=== PATIENT | female | born 1960 | race Caucasian/White ===

== ENCOUNTER 2018-02-01 08:00 | Outpatient (RCR) | payer BC, SELFPAY ==
--- NOTE | 2017-12-21 08:45 | HP.PTEVAL_ITS ---
Patient's Visit Information ERNA CHATMAN is a 57 year old F referred to Physical Therapy by JOSEE DENNISON with a diagnosis of L upper back pain. Date of Evaluation: 12/21/17 Physical Therapist: Tab De La Torre DPT, OC - Visit Plan Frequency: 2-3x /Week Duration: 4-6 Weeks Plan: 2-3x/week for 4-6 weeks. 1. monitor home c/s ret and ext program(ROM, pain and UE elevation). 2. sTM to L c/s, UT, scalenes and stretch same, . 3. Postural focus. - Subjective Subjective: L shoulder complaints and is painful, weak and keeping up at night. Been there a couple months and insidious in onset with thightness for no reason. Pain is neck and top of shoulder. Sore at rest. No numbness or tingling. No pain in arm. Wakes up at night and uncomfy getting to sleep. Lying on right is worse on left shoulder. Works as a supervisor [employer], pushing AV cart hurts. Sitting is worse than up and moving. Hobbies include cooking and hiking. stirring and reaching is painful. Driving can hurt. Is right handed. L hand on wheel is problematic. Getting dressed putting arms through sleeve and head through sweater and hand behind all hurt. - Pain L neck and top shoulder Pain Intensity (Out of 10): 1 Pain Intensity Range: 0, 4 Comment: OK with alleve, - Objective Posture is forward head and scap. Tender to the touch in L UT and scalenes. C/ S aROM 45 ext with pain L, 50 L rotation and 52 R rotation both painful on L UT. L SB 20 degrees and R SB28 degrees. reflexes 2/3 bi and tri. Sensation UE WNL to gross light touch. Strength in UE is 4-/5, has discomfort posterior shoulder with ext rotationa nd flex abd resisted. UE AROM is full but pain end range of IR and flexion/abduction. Repeated motion testing: protrusion, better pain down to 1/10 from 2, better ext 55 degrees and easier to lift arm. retraction: better. extension: producexs pain but better when done. - Goals Goal 1:: Full c/s and shoulder AROM without pain Goal Time Frame: 4-6 Weeks Goal 2:: Overall pain intermittent and 1/10 at worst, 75% improved overall. Goal Time Frame: 4-6 Weeks Goal 3:: Sleep without waking due to pain Goal Time Frame: 4-6 Weeks Goal 4:: Dress and cook without noticing symptoms Goal Time Frame: 4-6 Weeks - Rehabilitation Potential Physical Therapy Diagnosis: L neck pain, muscular vs discal. Rehabilitation Potential: Fair - Anticipated Interventions Patient/Client Instruction: Educate patient on: Condition, Plan of Care For the Purpose of:: To decrease pain, To increase ROM, To increase tolerance to activity/condition/position, To improve ability of physical actions for home/ community/work/leisure Therapeutic Exercise to Include: Strength training, Postural training, Flexibilty training, Active ROM For the Purpose of:: To decrease pain, To increase ROM, To improve muscle performance and motor function, To increase tolerance to activity/condition/ position, To improve ability of physical actions for home/community/work/leisure Manual Therapy Techniques to Include: Soft tissue mobilization For the Purpose of:: To increase ROM, To improve nutrient delivery to tissue, To increase oxygenation perfusion Thermo therapy (hot pack): Yes For the Purpose of:: To decrease pain Thank you for the opportunity to evaluate your patient. For Medicare and Medicare HMO plans, please review the plan of care and approve it. It will need to be FAXED BACK to us at [phone] for Medicare purposes. Please let me know if there are questions or concerns regarding this plan of care. Physician Signature: Date:
--- NOTE | 2018-02-01 08:18 | HP.PTDCSUM ---
HP - PT D/C Summary It has been my pleasure to treat ERNA CHATMAN under orders from JOSEE HOLLEY, for the diagnosis of L upper back pain for a total of 8 visit(s). Discharge Date: 02/01/18 Please see the following information for a summary of their discharge status. - Subjective Subjective: Needs blue band . Painful and tightness has returned as she has been to busy to continue ex. Pain to 3/10 in L shoulder neck. Did ROM but not strengthen. Thinks she is worsening due to lack of strength. Sleep is interrupted again. Avoids lifting in the kitchen b/c she is scared to inure it. - Pain L neck and top shoulder Pain Intensity (Out of 10): 3 - Overall Improvement % Improvement: 85 - Objective Objective/Function: Full aROM UE adn strength is 4+ without pain. C/S AROM 70 ext with mild discomfort L C/S, 70 L rotation with mild pain and 75 nR rotation. L SB limited as compared to r and painful. + c/s compression. PT DID WELL WITH PT BUT NONCOMPLINCE WITH HEP OVER THE LAST FEW WEEKS(SHE HAS BEEN VERY BUSY) HAS CAUSED HER TO REGRESS. - Goals Goal 1:: Full c/s and shoulder AROM without pain Goal Progress: UP AND DOWN Goal 2:: Overall pain intermittent and 1/10 at worst, 75% improved overall. Goal Progress: UP AND DOWN Goal 3:: Sleep without waking due to pain Goal Progress: INTERMITTENT Goal 4:: Dress and cook without noticing symptoms Goal Progress: REGRESSED - Plan Plan: SHE WISHES TO F/U WITH DOCTOR AND BE MORE COMPLIANT WITH HEP VS FURTHER PT. D/C - D/C Information Discharge Comments: PT TO F/U WITH DOCTOR FOR STOMACH ISSUES AND ADDRESS OTHER OPTIONS ON SHOULDER WITH DOCTOR IF PAIN DEOSN'T IMPROVE WITH HEP COMPLIANCE If there are questions or concerns regarding this patient's physical therapy, please feel free to call me at [phone]. Thank you for the referral of this patient. Sincerely, Tab De La Torre, DPT, OC
== END 2018-02-01 19:00 | disposition home or self-care (01) ==
LOC: PT 08:00
DX: M54.9 Dorsalgia, unspecified (principal)
CPT/HCPCS: 97035; 97110; 97162; 97530

== ENCOUNTER → 2018-08-09 07:20 | Outpatient (CLI) | payer BC, SELFPAY ==
--- NOTE | 2018-08-09 07:24 | BI_ITS ---
MAMMOGRAPHY - BILATERAL SCREENING REASON FOR EXAM: Female, 58 years old. Routine annual screening examination. PERTINENT HISTORY: Grandmother with breast cancer. TECHNIQUE: Digital bilateral breast kaya (3D mammographic acquisition) in the CC and MLO projections. 2-D mediolateral oblique (MLO) and craniocaudad (CC) views of both breasts were obtained. CAD: Full Field Digital Mammography with Computer Added Detection was performed. COMPARISON: Comparison is made with prior study dated January 16, 2014 and September 14, 2012. FINDINGS: Breast Composition: The breasts are heterogeneously dense, which may obscure small masses. There are no dominant masses or suspicious calcifications. No other significant abnormalities are identified. There has been no significant change since the prior study. BI/SCREENING MAMM (CAD), BILAT IMPRESSION: Stable bilateral screening mammogram. Yearly follow-up mammogram recommended. (A) ASSESSMENT CATEGORY: BIRADS Category 1: Negative. A letter regarding these results will be sent to the patient by the facility within 30 days. Approximately 10% of breast cancers are not detected by mammography. A normal mammogram should not delay biopsy of a clinically suspicious abnormality. [id number] Electronically Signed: Edy Hartman MD at 8:24 EDT Tel [phone], Service support ,
[2018-08-09 08:14] LABS: Absolute Lymphocyte Count 0.79 X10^3/ul (0.83-4.51); Absolute Neutrophil Count 6.9 X10^3/uL (2.0-7.7); Basophil# 0.01 X10^3/uL; Basophil% 0.1 % (0-1); Eosinophil# 0.01 X10^3/uL; Eosinophils% 0.1 % (0-5); Hematocrit 40.9 % (37-47); Hemoglobin 13.6 g/dl (12.0-15.0); Lymphocyte # 0.79 X10^3/ul (4.0); Lymphocyte % 9.3 % (19-41); Mean Corp Hgb Conc 33.3 g/gl (32-36); Mean Corpuscular Volume 96.2 fL (81-99); Mean Platelet Vol. 8.7 fl (6.2-12.0); Monocyte# 0.78 X10^3/uL; Monocyte% 9.2 % (0-10); Neutrophil # 6.92 X10^3/uL (2.7-7.7); Neutrophil % 81.2 % (47-70); POSITIVE COUNT NO; POSITIVE DIFFERENTIAL NO; POSITIVE MORPHOLOGY NO; Platelet Count 326 K/mm3 (150-450); RBC Distribution Width CV 12.7 % (11.6-14.6); Red Blood Count 4.25 M/mm3 (4.2-5.4); White Blood Count 8.5 K/mm3 (4.4-11.0)
[2018-08-09 08:33] LABS: Hemoglobin A1c 5.6 % (4.2-6.3)
[2018-08-09 08:56] LABS: Cholesterol 201 mg/dL (200); Ferritin 65 ng/mL (8-252); High Density Lipoprotein 50 mg/dL; Triglycerides 148 mg/dL; Very Low Density Lipoprotein 30 mg/dL (5-40)
[2018-08-09 09:01] LABS: Vitamin D,25 Hydroxy 24.2 ng/mL (29.95-100.01)
[2018-08-09 14:56] LABS: AST(SGOT) 22 U/L (15-37); Alanine Aminotransfer ALT/SGPT 36 U/L (13-56); Albumin, Serum 3.5 g/dL (3.2-5.0); Alkaline Phosphatase 102 U/L (45-117); Anion Gap 5 (5-15); BUN 14 mg/dL (7-18); BUN/Creat Ratio 19.4 RATIO (10-20); Calcium,Total 8.4 mg/dL (8.5-10.1); Chloride 108 mmol/L (98-107); Creatinine, Serum 0.72 mg/dL (0.55-1.02); EST Glomerular Filtration Rate 88 mL/min (>60); Est Glom Filt Rate - Afr Amer 107 mL/min (>60); Globulin 3.4 g/dL (2.2-4.2); Glucose 105 mg/dL (74-106); Protein, Total 6.9 g/dL (6.4-8.2); Sodium Level 139 mmol/L (136-145)
== END ==
LOC: OPBI 07:21 → PAVLAB 07:51
DX: Z12.31 Encounter for screening mammogram for malignant neoplasm of breast (principal); G25.81 Restless legs syndrome; E66.3 Overweight; E78.5 Hyperlipidemia, unspecified; E55.9 Vitamin D deficiency, unspecified; Z13.220 Encounter for screening for lipoid disorders
CPT/HCPCS: 36415; 77063; 77067; 80053; 80061; 82306; 82728; 83036; 85025

== ENCOUNTER → 2018-08-23 15:01 | Outpatient (CLI) | payer BC, SELFPAY ==
[2018-08-23 15:29] LABS: Prothrombin Time (Protime)PT. 12.9 SECONDS (11.7-14.9)
[2018-08-23 16:11] LABS: AST(SGOT) 16 U/L (15-37); Alanine Aminotransfer ALT/SGPT 33 U/L (13-56); Albumin, Serum 3.8 g/dL (3.2-5.0); Alkaline Phosphatase 99 U/L (45-117); Bilirubin, Direct 0.26 mg/dL (0.00-0.30); GGTP 129 U/L (5-55); Globulin 3.4 g/dL (2.2-4.2); Protein, Total 7.2 g/dL (6.4-8.2)
== END ==
DX: E80.6 Other disorders of bilirubin metabolism (principal)
CPT/HCPCS: 36415; 80076; 82977; 85610

== ENCOUNTER → 2019-09-12 07:10 | Outpatient (CLI) | payer BC, SELFPAY ==
--- NOTE | 2019-09-12 07:14 | BI_ITS ---
MAMMOGRAPHY - BILATERAL SCREENING 3-D TOMOSYNTHESIS REASON FOR EXAM: Female, 59 years old. Is 03/17 PERTINENT HISTORY: No significant family history. TECHNIQUE: 2-D mammograms and 3-D Tomosynthesis of the breast (s) were performed. CAD was performed. COMPARISON: August 09, 2018 FINDINGS: The breast composition is heterogeneously dense that may obscure subtle lesion. Scattered benign calcifications are seen. No dense spiculated masses or suspicious microcalcifications are identified. No architectural distortion is identified. There is no skin thickening or nipple retraction. There has been no significant change since the prior study. BI/SCREEN MAMM (CAD) W/BRUCE BILAT IMPRESSION: No mammographic signs of malignancy. Unchanged since August 09, 2018 Routine yearly mammograms recommended. ASSESSMENT CATEGORY: BIRADS Category 1: Negative. A letter regarding these results will be sent to the patient by the facility within 30 days. FOLLOW UP RECOMMENDATION: Yearly follow up mammogram recommended. (A) Approximately 10% of breast cancers are not detected by mammography. A normal mammogram should not delay biopsy of a clinically suspicious abnormality. Electronically Signed: Dinorah Mera, at 9:32 EST Tel , Service support ,
== END ==
DX: Z12.31 Encounter for screening mammogram for malignant neoplasm of breast (principal)
CPT/HCPCS: 77063; 77067

== ENCOUNTER → 2020-09-19 07:13 | Outpatient (CLI) | payer BC, SELFPAY ==
--- NOTE | 2020-09-19 07:16 | BI_ITS ---
MAMMOGRAPHY - BILATERAL SCREENING REASON FOR EXAM: Female, 60 years old. Routine annual screening examination. PERTINENT HISTORY: Grandmother with breast cancer. TECHNIQUE: Digital bilateral breast bruce (3D mammographic acquisition) in the CC and MLO projections. 2-D mediolateral oblique (MLO) and craniocaudad (CC) views of both breasts were obtained. CAD: Full Field Digital Mammography with Computer Added Detection was performed. COMPARISON: Comparison is made with prior study dated 09/12/2019 and 08/09/2000 FINDINGS: Breast Composition: The breasts are heterogeneously dense, which may obscure small masses. There are no dominant masses or suspicious calcifications. No other significant abnormalities are identified. There has been no significant change since the prior study. BI/SCREEN MAMM (CAD) W/BRUCE BILAT IMPRESSION: Stable bilateral screening mammogram. Yearly follow-up mammogram recommended. (A) ASSESSMENT CATEGORY: BIRADS Category 1: Negative. A letter regarding these results will be sent to the patient by the facility within 30 days. Approximately 10% of breast cancers are not detected by mammography. A normal mammogram should not delay biopsy of a clinically suspicious abnormality. [id number] Electronically Signed: Edy Hartman, at 8:23 EST , Service support ,
== END ==
PROVIDERS: PCP Family Medicine; Referring Provider Family Medicine; Visit Provider Family Medicine
DX: Z12.31 Encounter for screening mammogram for malignant neoplasm of breast (principal); Z80.3 Family history of malignant neoplasm of breast
CPT/HCPCS: 77063; 77067

== ENCOUNTER 2021-10-28 08:30 | Outpatient (RCR) | payer BC, SELFPAY ==
--- NOTE | 2021-09-02 09:58 | HP.PTEVAL ---
Patient's Visit Information ERNA CHATMAN is a 61 year old F referred to Physical Therapy by Dr. Xin Carpio DO with a diagnosis of TRAPEZIUS MUSCLE SPASM. Date of Evaluation: 09/02/21 Physical Therapist: Vicky Hernandez, PT, Cert MDT - Visit Plan Frequency: 2-3x /Week Duration: 4-6 Weeks Plan: US AND IF-ESTIM WITH X 6-8 VISITS. POSTURE CORRECTION/STRENGTHENING, INSTRUCTION IN APPROPRIATE BODY MECHANICS AND ACTIVITY MODIFICATIONS. MARION UE ROM, STRETCHING AND STRENGTHENING. HEP INSTRUCTION - CONSIDER: REP RET IN SITTING. REP RET IN LYING. SCAP SQUEEZES. DEEP NECK FLEXOR LIFT. PRONE W'S. UE WALL SLIDES. PRONE ROWS. UE TBAND WALL WALKS. ANTERIOR/MIDDLE SCALENE STRETCH. UPPER TRAP STRETCH. LEVATOR SCAPULAE STRETCH. 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 CURRENTLY LIVES WITH HER. Present symptoms: LEFT NECK AND SHLD PAIN. HEADACHES IN THE AFTERNOON. PATIENT DENIES NUMBNESS AND TINGLING. Present since: MAY 2021. Pain Scale: Worst - 4/10 Least - 1/10. Currently: 11/26. Commenced as a result of: CARRYING GRANDSON. Symptoms at onset: SAME. Worse: AFTERNOON. Better: SELF MASSAGE, IBUPROFEN, SLEEPING WITH CONTOUR PILLOW. Disturbed sleep: YES. Previous history/Previous treatment: 2001 NECK PAIN FOR NO APPARENT REASON TREATED WITH PT AND HELPED. PINCHED NERVES IN NECK TWO OTHER TIMES APPROX 2004 AND 2008 - TREATED WITH PT AND WENT AWAY AGAIN. USE TO DO NECK EX'S BUT NOT ANYMORE. ALSO THINKS SHE HAD MORE RECENT PT FOR HER NECK. NO NECK SURGERY. NO NECK INJECTIONS. SOME CHIROPRACTIC IN THE PAST WITHOUT RESULTS. This episode: CYCLOBENZAPRENE - HELPING. Dizziness: NO. Tinnitis: NO. Nausea: NO. Shortness of Breath: NO. Difficulty Swollowing: NO. Gait: NORMAL. Accidents: FALL - SLIPPED ON WET PAINT - 2008 SEVERED ACL LEFT KNEE TREATED WITH SURGERY. Unexplained weight loss: NO. Imaging: NONE RECENT. PMH/Recent major surgery: GLAUCOMA, ANXIETY - Objective Sitting Posture/Standing Posture: FAIR. INCREASED KYPHOSIS. FH. RSH'S. Active Correction of posture: WORSE. Other Observations: INDEP GAIT AND TRANSFERS. 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 STATES SHE IS A CORRECTED LEFT HANDER. MARION UE'S WNL EXCEPT SCAPULAR STRENGTH MARION IS FAIR. Sensory deficit: MARION UE LIGHT TOUCH SENSATION INTACT AND SYMMETRICAL. ROM deficit: MARION UE'S WFL. Reflexes: NT. Dural Signs: NEGATIVE. Cervical Mvmt Loss: Flex: MIN. Pro: NIL. Ext: MOD. Ret: MIN TO MOD. RSB: MOD TO PRISCILLA. LSB: MOD TO PRISCILLA. R Rot: MOD. L Rot: MIN. Postural strength: POOR. Palpation: TENDERNESS WITH PALPATION OF THE OCCIPUT, CERVICAL SPINE, MEDIAL SCAP AND UPPER TRAP REGIONS ON THE LEFT ONLY. TREATMENT: NEUROMUSCULAR REEDUCATION - RETRAINING OF MVMT AND POSTURE FOR SITTING, LYING AND STANDING ACTIVITIES. - Balance/Special Test Scores Oswestry Neck Score: 14 - Goals Goal 1:: DECREASE C/O HEAD AND L NECK PAIN Goal Time Frame: 4-6 Weeks Goal 2:: IMPROVE PERSONAL CARE, LIFTING, READING, SLEEP, WORK, DRIVING, AND RECREATIONAL FUNCTION. Goal Time Frame: 4-6 Weeks Goal 3:: INSTRUCT IN PROPHYLAXIS Goal Time Frame: 4-6 Weeks - Anticipated Interventions Patient/Client Instruction: Educate patient on: Condition, Plan of Care, Risk Factors For the Purpose of:: To improve self management Therapeutic Exercise to Include: Strength training, Body mechanics, Postural training, Flexibilty training, Neuromotor development, Scapular Strength/Stabilization For the Purpose of:: To decrease pain, To improve muscle performance and motor function, To increase tolerance to activity/condition/position, To improve ability of physical actions for home/community/work/leisure TENS: Yes IF ES: Yes Cryotherapy (ice pack, ice massage): Yes Thermo therapy (hot pack): Yes Ultrasound (thermal/non thermal): Yes For the Purpose of:: To decrease pain, To improve nutrient delivery to tissue Thank you for the opportunity to evaluate your patient. For Medicare and Medicare HMO plans, please review the plan of care and approve it. It will need to be FAXED BACK to us at [phone] for Medicare purposes. For Medicare only, by signing this I certify the plan of care. Please let me know if there are questions or concerns regarding this plan of care. Physician Signature: Date:
--- NOTE | 2021-10-28 11:40 | HP.PTDCSUM ---
It has been my pleasure to treat ERNA CHATMAN referred by Dr. Xin Carpio DO, with the diagnosis of TRAPEZIUS MUSCLE SPASM for a total of 18 visit(s). Discharge Date: 10/28/21 Please see the following information for a summary of their discharge status. Subjective: PATIENT REPORTS SHE HAD TROUBLE LAST NIGHT AND COULDN'T SLEEP DUE TO NECK PAIN. REALIZED IT WAS HER PILLOW BECAUSE IT WAS BACKWARDS. REPOSITIONED PILLOW AND ABLE TO SLEEP. STATES MRI RESULTS REVEALED MILD ARTHRITIS IN HER NECK. REPORTS SHE DID GREAT AFTER EX SESSION LAST TUESDAY. WANTS TO GO OVER GYM EX'S AGAIN TODAY BUT FEELS READY FOR DISCHARGE. BEING REFERRED TO NECK SPECIALIST PER CELESTINA REPORT. NECK Pain Intensity (Out of 10): 1 L UPPER ARM Pain Intensity (Out of 10): Unrated % Improvement: 90 Objective/Function: PATIENT WAS SEEN TODAY FOR RE-ASSESSMENT OF PROGRESS TOWARD THE SET PT GOALS AND THE NEED FOR FURTHER PHYSICAL THERAPY VS READINESS FOR DISCHARGE. UPON EXAM TODAY: MARION UE ROM AND STRENGTH IS WFL AND NO INCREASED PAIN WITH TESTING TODAY. Sensory deficit: MARION UE LIGHT TOUCH SENSATION INTACT AND SYMMETRICAL. Dural Signs: NEGATIVE. Cervical Mvmt Loss: Flex: NIL. Pro: NIL. Ext: MIN. Ret: MIN. RSB: MOD. LSB: MOD. R Rot: MIN. L Rot: MIN. PATIENT REPORTS MILD INCREAESED LEFT NECK PAIN AFTER ROM TESTING. Postural strength: POOR. Palpation: TENDERNESS WITH PALPATION OF THE LEFT UPPER TRAP REGION TODAY AND THERE IS STILL A SMALL LUMP IN THIS AREA THAT IS TENDER. PATIENT REPORTS RECENT MRI DID NOT SHOW A LIPOMA THE DOCTOR SUSPECTED. Goal 1:: DECREASE C/O HEAD AND L NECK PAIN Goal Progress: Goal Met Goal 2:: IMPROVE PERSONAL CARE, LIFTING, READING, SLEEP, WORK, DRIVING, AND RECREATIONAL FUNCTION. Goal Progress: Goal Met Goal 3:: INSTRUCT IN PROPHYLAXIS Goal Progress: Goal Met Plan: D/C TO INDEP EX. PATIENT AGREEABLE. If there are questions or concerns regarding this patient's physical therapy, please feel free to call me at [phone]. Thank you for the referral of this patient. Sincerely, Vicky Hernandez, PT, Cert MDT Balance/Gait/Functional tests - Balance/Special Test Scores Oswestry Neck Score: 2
== END 2021-10-28 19:00 | disposition home or self-care (01) ==
LOC: PT 08:30
PROVIDERS: PCP Family Medicine; Referring Provider Family Medicine; Visit Provider Family Medicine
DX: M62.838 Other muscle spasm (principal)
CPT/HCPCS: 97035; 97110; 97112; 97140; 97162; 97164; 97530

== ENCOUNTER → 2022-03-12 | Outpatient (CLI) | payer BC, SELFPAY ==
--- NOTE | 2022-03-12 07:53 | BI_ITS ---
MAMMOGRAPHY - BILATERAL SCREENING REASON FOR EXAM: Female, 61 years old. Routine annual screening examination. PERTINENT HISTORY: Grandmother with breast cancer. TECHNIQUE: Digital bilateral breast bruce (3D mammographic acquisition) in the CC and MLO projections. 2-D mediolateral oblique (MLO) and craniocaudad (CC) views of both breasts were obtained. CAD: Full Field Digital Mammography with Computer Added Detection was performed. COMPARISON: Screening mammogram from 09/19/2020, 09/12/2019, 08/09/2018, 01/16/2014. FINDINGS: Breast Composition: The breasts are heterogeneously dense, which may obscure small masses. There are no dominant masses or suspicious calcifications. No other significant abnormalities are identified. There has been no significant change since the prior study. BI/SCRN MAMM (CAD)W/BRUCE BILAT IMPRESSION: Stable bilateral screening mammogram. Yearly follow-up mammogram recommended. (A) ASSESSMENT CATEGORY: BIRADS Category 1: Negative. A letter regarding these results will be sent to the patient by the facility within 30 days. Approximately 10% of breast cancers are not detected by mammography. A normal mammogram should not delay biopsy of a clinically suspicious abnormality. [id number] Electronically Signed: Ector Lim, at 15:56 EDT ,
== END | disposition home or self-care (01) ==
LOC: OPBI 07:51
PROVIDERS: PCP Family Medicine; Referring Provider Family Medicine; Visit Provider Family Medicine
DX: Z12.31 Encounter for screening mammogram for malignant neoplasm of breast (principal); Z80.3 Family history of malignant neoplasm of breast
CPT/HCPCS: 77063; 77067

== ENCOUNTER 2022-12-18 16:26 | Emergency (ER) | payer BC, SELFPAY ==
[2022-12-18 16:27] VITALS: BP 125/73; PULSE 80; RESP 18; TEMP 37.1; O2SAT 95; BMI 27.2
--- NOTE | 2022-12-18 16:34 | EX.ED.UPPERE ---
HPI History of Present Illness Chief Complaint: Upper Extremity Injury Informant: patient Onset/Context/Timing Onset: Yesterday Current Severity: Mild Maximum Severity: Mild Narrative Narrative: Patient present secondary to right hand injury. Yesterday she was putting her grandchildren in their car seats when she felt a popping sensation in her right hand. Today she has some swelling and redness. She is right-hand dominant. She is not on anticoagulants. [facility] Medical History Arthritis Back pain Glaucoma Neuropathy RLS (restless legs syndrome) Allergy/AdvReac Type Severity Reaction Status Date / Time azithromycin [From Zithromax] Allergy Hives Verified 12/18/22 16:28 Social History Smoking Status: Never smoker ROS ROS ED Constitutional Constitutional ED: Denies chills or fever(s) Eyes Eyes: Denies change in vision or discharge from eye(s) ENT ENT ED: Denies discharge from eye(s), rhinorrhea or sore throat Cardiovascular Cardiovascular: Denies chest pain or palpitations Respiratory/Chest Respiratory/Chest: Denies cough or dyspnea Gastrointestinal Gastrointestinal: Denies abdominal pain, nausea or vomiting Musculoskeletal Musculoskeletal: Reports extremity pain; Denies back pain Integumentary Denies Abrasions or rash Neurologic Neurologic: Denies headache(s), paresthesias or weakness Psychiatric Psychiatric: Denies anxiety or depression Allergic/Immunologic Allergic/Immunologic ED: Denies lip swelling or urticaria EXAM Physical Exam Const Vital Signs: 12/18/22 16:27 Temperature 98.7 F Temperature Source Temporal Pulse Rate 80 Respiratory Rate 18 Blood Pressure 125/73 H Blood Pressure Mean 90 Pulse Ox 95 Oxygen Delivery Method Room Air Positive well nourished and well developed General Appearance ED: well developed HEENT Reports normocephalic and head/scalp atraumatic Eyes PERRL and EOMs intact bilaterally Neck supple Chest Wall inspection of chest normal and palpation of chest normal Resp normal respiratory effort and clear to auscultation bilaterally Cardio regular rate and regular rhythm GI normal to inspection, nondistended, normoactive bowel sounds Palpation: soft Extremity Extremity Narrative: Mild erythema and edema to the dorsum of the right hand, primarily over the second and third metacarpals. No bony tenderness with palpation. Full range of motion of all digits without difficulty. Good cap refill and sensation. Neuro oriented x3 and no sensory deficits noted Sensorium / Orientation: alert Motor Exam: strength 5/5 throughout Psych mental status grossly normal MDM MDM MDM Narrative Medical decision making narrative: Right hand x-ray obtained. Radiography Diagnostic Testing: Radiology Impression Hand X-Ray 12/18/22 16:40 IMPRESSION: Normal x-ray examination of the hand. Electronically Signed: Isreal Bhagat MD at 17:16 EST , Treatment and Re-Evaluation Narrative: Right hand x-ray from interpretation reveals no evidence of fracture. Radiology interpretation is reviewed and agrees. Test results discussed with patient and spouse at bedside. Justice wrap applied. She will continue elevation and Tylenol. She is already on Mobic chronically. Discharge Plan Triage Chief Complaint: Upper Extremity Injury ED Provider: Bouchra Malik Dx/Rx/DC Orders Clinical Impression: Contusion of hand, right Instructions: ED Hand Contusion Primary Care Provider: Xin Carpio Referrals: Xin Carpio DO [Primary Care Provider] - 10-14 Days if not better Disposition Disposition: Home, Self Care
--- NOTE | 2022-12-18 16:40 | RAD_ITS ---
STUDY: X-RAY - RIGHT HAND REASON FOR EXAM: Female, 62 years old. injury TECHNIQUE: 3 view(s) of the hand. COMPARISON: None. FINDINGS: Normal radiocarpal articulation. Normal distal radioulnar joint. Normal visualized carpal bones. Normal carpal articulations Normal carpometacarpal articulation of the thumb. Normal second through fifth carpometacarpal joints. Normal metacarpi. Normal metacarpophalangeal joint of the thumb. Normal interphalangeal joint of the thumb. Normal proximal and distal phalanges of the thumb. Normal metacarpophalangeal joints of the second through fifth fingers. Normal proximal and distal interphalangeal joints of the second through fifth fingers. Normal phalanges of the second through fifth fingers. The soft tissue structures are unremarkable. RAD/Hand Min 3 Views IMPRESSION: Normal x-ray examination of the hand. Electronically Signed: Isreal Bhagat MD at 17:16 EST ,
== END 2022-12-18 17:47 | disposition home or self-care (01) ==
PROVIDERS: Emergency Provider Emergency Medicine; PCP Family Medicine; Visit Provider Emergency Medicine
DX: S60.221A Contusion of right hand, initial encounter (principal); X58.XXXA Exposure to other specified factors, initial encounter
CPT/HCPCS: 73130; 99282

== ENCOUNTER 2023-03-24 08:29 | Emergency (ER) | payer BC, SELFPAY ==
[2023-03-24 08:29] VITALS: BP 140/83; PULSE 83; RESP 14; TEMP 36.5; O2SAT 100; BMI 25.9
--- NOTE | 2023-03-24 08:56 | CT_ITS ---
STUDY: CT ABDOMEN AND PELVIS WITH CONTRAST REASON FOR EXAM: Female, 62 years old. Left lower quadrant pain. Fever. RADIATION DOSAGE (If Supplied By Facility): CTDIvol = ( 10 ) mGy, DLP = ( 401.82 ) mGycm TECHNIQUE: Transaxial images were obtained from the dome of the diaphragm to the symphysis pubis without oral contrast. IV 100mL Isovue-300 was administered. Sagittal and coronal images were reconstructed. Individualized dose optimization techniques were used for this CT. COMPARISON: None. FINDINGS: Mild degree of increased markings at the lung bases suggestive of mild bibasilar atelectasis. The visualized portions of the heart are within normal limits. There is decreased attenuation of the liver consistent with steatosis. Normal gallbladder and extrahepatic biliary system. Normal spleen. Normal pancreas. Normal bilateral adrenal glands. Normal right kidney. Normal left kidney. Normal visualized stomach. Normal small intestine. There are scattered colonic diverticula consistent with diverticulosis. The appendix is visualized and appears normal. Normal abdominal aorta. Normal inferior vena cava. Normal retroperitoneum. Normal urinary bladder. There is a 2.5 cm cyst in the left ovary. There is a small umbilical hernia containing fat. Disc space narrowing and disc degeneration at the L5-S1 level. CT/Abdomen/Pelvis W IV Cont ONLY IMPRESSION: Diffuse fatty infiltration of the liver. Scattered sigmoid diverticula. Mild degree of the bibasilar atelectasis. Electronically Signed: Edy Hartman MD at 10:17 EDT ,
[2023-03-24] MEDS: Ondansetron 4 MG/2 ML Vial IV (09:02)
[2023-03-24] MEDS: Morphine 4 MG/ML Syringe IV (09:02)
[2023-03-24] MEDS: 0.9% Normal Saline 1,000 ML 1000 ML IV (09:02)
--- NOTE | 2023-03-24 09:11 | ED.VIS.GI ---
HPI HPI - GI History of Present Illness Chief Complaint: Abd Pain Informant: patient Abdominal Pain/Flank Pain Onset: Days (2-3) Context: Gradual Onset Timing: Continuous Quality: Aching and Cramping Location: - (Lower abdomen) Current Severity: Moderate Maximum Severity: Moderate Worsened by: Movement (Position changes especially sitting on toilet) Relieved by: Nothing Nausea/Vomiting/Emesis GI Symptom: Positive for Nausea; Negative for Vomiting Diarrhea/Melena/Hematochezia GI Symptom: Negative for Diarrhea, Melena or Hematochezia Associated Symptoms Associated Symptoms: Negative for Dysuria, Frequency, Hematuria or Urgency Narrative Narrative: Patient states 2 or 3 days ago she developed gradual onset lower abdominal pain/cramping, later that evening she had a fever up to 103 and has had a mild gradual onset diffuse headache at times with this although that has not been persistent the entire time. The pain has worsened, she is still having fevers, some nausea but no vomiting. She is also developed some pain in her kidney and she has no urinary symptoms throughout all of this. No cough, dyspnea, or chest discomfort, she has had some nasal congestion associated with seasonal allergies that is common for her but no earache, sore throat, significant rhinorrhea. She has a history of 2 C-sections and they took her appendix out with it, nothing recent with regards to surgery or hospitalization. She has had screening colonoscopies in the past that have been unremarkable and never been diagnosed with diverticulitis that she knows of. She states she was at urgent care prior to being sent here, when she was there according to the patient only which is the only available source of history, her temperature was 100.x. [facility] Medical History (Updated 03/24/23 @ 10:[address] Bebeto Wooten MD) Arthritis Back pain Glaucoma Neuropathy RLS (restless legs syndrome) Home Medications dicyclomine 10 mg capsule 20 mg PO Q6H PRN abdominal pain #20 CAPSULES 03/24/23 [Rx Last Taken Unknown] hydrocodone-acetaminophen 5-325mg 5mg-325mg 1 tab PO Q6H PRN PRN Pain 2 days #8 TABLETS 03/24/23 [Rx Last Taken Unknown] ondansetron 4 mg disintegrating tablet 8 mg PO Q8H PRN PRN Nausea #20 tabs 03/24/23 [Rx Last Taken Unknown] Allergy/AdvReac Type Severity Reaction Status Date / Time azithromycin [From Zithromax] Allergy Hives Verified 03/24/23 08:30 Surgical History (Updated 03/24/23 @ 09:[address] Bebeto Wooten MD) History of appendectomy History of Social History Smoking Status: Never smoker ROS ROS ED Constitutional Constitutional ED: Reports fever(s); Denies chills Eyes Eyes: Denies change in vision or diplopia ENT ENT ED: Denies rhinorrhea or sore throat Cardiovascular Cardiovascular: Denies chest pain or palpitations Respiratory/Chest Respiratory/Chest: Denies cough or dyspnea Gastrointestinal Gastrointestinal: Reports abdominal pain and nausea; Denies diarrhea, melena or vomiting Genitourinary Genitourinary ED: Denies dysuria, hematuria or urinary frequency Musculoskeletal Musculoskeletal: Reports back pain; Denies neck pain Integumentary Denies abscess or rash Neurologic Neurologic: Denies headache(s), paresthesias or weakness Psychiatric Psychiatric: Denies anxiety or suicidal thoughts EXAM Physical Exam Const Vital Signs: 03/24/23 08:29 03/24/23 10:45 Temperature 97.7 F L Temperature Source Temporal Pulse Rate 83 68 Respiratory Rate 14 Blood Pressure 140/83 H 126/75 H Blood Pressure Mean 102 92 Pulse Ox 100 Oxygen Delivery Method Room Air Positive well nourished and well developed General Appearance ED: well developed and NAD HEENT Reports moist mucous membranes normocephalic and atraumatic Eyes PERRL and EOMs intact bilaterally Neck full ROM and supple Resp normal respiratory effort and clear to auscultation bilaterally Cardio regular rate, regular rhythm and no murmurs GI non-distended GI Narrative: Very tender in the distal left lower quadrant and suprapubic areas, no guarding or rebound tenderness, otherwise very benign abdomen. Soft and nondistended. Auscultation: normoactive bowel sounds Palpation: soft Back/Spine Back/Spine Narrative: Very mild left CVA tenderness none on the right, normal inspection no rash. General Back: other FROM Extremity normal to inspection General Extremety ED: Negative for edema, pulses abnormal or tenderness General Extremity: Negative for edema or pulses abnormal Neuro oriented x3, CN's II-XII intact bilaterally and no sensory deficits noted Sensorium / Orientation: awake and alert Motor Exam: strength 5/5 throughout Skin no rashes or lesions noted and no wounds MDM MDM MDM Narrative Medical decision making narrative: Patient extremely tender in the lower abdomen, differential includes bladder, genitourinary, diverticulitis related etiologies this is not an exclusive list. Less likely to be a AAA. The blood work is extremely normal as is the urinalysis, with a white blood count of 6.5, no significant left shift, CT with IV contrast was obtained and basically shows no acute abnormality. There are scattered diverticula without evidence of diverticulitis, no evidence of a vascular abnormality, or anything else acute that explains her symptoms. Given all of this and the fact that she had a fever and no other obvious source, I think it is possible that she had a viral infection that could have been causing this along with GI spasm/pain. At this time I think supportive care is reasonable and close a patient follow-up if her symptoms persist longer than the next 3 days, she is comfortable with that plan. Lab Data Attestation: I reviewed the patient's lab results. Labs: Laboratory Results - last 24 hr 03/24/23 03/24/23 03/24/23 09:05 09:05 09:25 WBC 6.5 RBC 3.74 L Hgb 11.9 L Hct 36.4 L MCV 97.3 MCH 31.8 MCHC 32.7 RDW Std Deviation 46.6 H RDW Coeff of Hayden 13.0 Plt Count 318 MPV 9.2 Immature Gran % (Auto) 0.500 Neut % (Auto) 73.1 H Lymph % (Auto) 15.8 L [place] % (Auto) 10.2 H Eos % (Auto) 0.2 Baso % (Auto) 0.2 Absolute Neuts (auto) 4.7 Absolute Lymphs (auto) 1.02 Nucleated RBC % 0 Sodium 137 Potassium 4.9 Chloride 108 H Carbon Dioxide 24.0 Anion Gap 5 BUN 11 Creatinine 0.75 Estim Creat Clear Calc 66.83 Est GFR (MDRD) Af Amer 100 Est GFR (MDRD) Non-Af 83 BUN/Creatinine Ratio 14.6 Glucose 122 H Calcium 8.9 Urine Color Yellow Urine Clarity Sl. Cloudy Urine pH 6.5 Ur Specific [place] 1.010 Urine Protein Negative Urine Glucose (UA) Normal Urine Ketones Negative Urine Occult Blood Negative Urine Nitrite Negative Urine Bilirubin Negative Urine Urobilinogen Normal Ur Leukocyte Esterase Negative Urine RBC 0 SEEN Urine WBC 0 SEEN Ur Squamous Epith Cells 0-5 SEEN Urine Bacteria 1+ Urine Mucus 0 SEEN Radiography Diagnostic Testing: Clinical Impression(s) from Imaging Studies Abdomen/Pelvis CT 03/24/23 08:56 IMPRESSION: Diffuse fatty infiltration of the liver. Scattered sigmoid diverticula. Mild degree of the bibasilar atelectasis. Electronically Signed: Edy Hartman MD at 10:17 EDT , Discharge Plan Triage Chief Complaint: Abd Pain ED Provider: Bebeto Wooten Dx/Rx/DC Orders Clinical Impression: Lower abdominal pain Instructions: Abdominal Pain Prescriptions: New dicyclomine 10 mg capsule 20 mg PO Q6H PRN (Reason: abdominal pain) Qty: 20 0RF hydrocodone-acetaminophen [hydrocodone-acetaminophen] 5-325 mg tablet 1 tab PO Q6H PRN PRN (Reason: Pain) 2 Days Qty: 8 0RF ondansetron [ondansetron] 4 mg tablet,disintegrating 8 mg PO Q8H PRN PRN (Reason: Nausea) Qty: 20 0RF Primary Care Provider: Xin Carpio Referrals: Xin Carpio, [Primary Care Provider] - 3-5 Days if not improving Activity Restrictions/Additional Instructions: Use the dicyclomine if you are having pain, if you need something more because the pain is still severe, then try the hydrocodone. Disposition Disposition: Home, Self Care
[2023-03-24 09:16] LABS: Absolute Lymphocyte Count 1.02 X10^3/uL (0.83-4.51); Absolute Neutrophil Count 4.7 X10^3/uL (2.0-7.7); Basophil# 0.01 X10^3/uL; Basophil% 0.2 % (0-1); Eosinophil# 0.01 X10^3/uL; Eosinophils% 0.2 % (0-5); Hematocrit 36.4 % (37-47); Hemoglobin 11.9 g/dL (12.0-15.0); Lymphocyte # 1.02 X10^3/ul (0.83-4.51); Lymphocyte % 15.8 % (19-41); Mean Corp Hgb Conc 32.7 g/dL (32-36); Mean Corpuscular Hgb 31.8 pg (27.0-32.0); Mean Corpuscular Volume 97.3 fL (81-99); Mean Platelet Vol. 9.2 fl (6.2-12.0); Monocyte# 0.66 X10^3/uL; Monocyte% 10.2 % (0-10); NRBC Flagged by Analyzer 0 % (0-5); Neutrophil # 4.74 X10^3/uL (2.7-7.7); Neutrophil % 73.1 % (47-70); Platelet Count 318 K/mm3 (150-450); RBC Distribution Width SD 46.6 fl (35.1-43.9); Red Blood Count 3.74 M/mm3 (4.2-5.4); White Blood Count 6.5 K/mm3 (4.4-11.0)
[2023-03-24 09:32] LABS: Mucous, Urine 0 SEEN /hpf (<or=2+); Red Blood Cells-Urine 0 SEEN /hpf (0-5); White Blood Cells 0 SEEN /hpf (0-5)
[2023-03-24 09:34] LABS: Color, Urine Yellow (Yellow); Glucose, Dipstick Normal (Normal); Ketone-Dipstick Negative (Negative); Leukocyte Esterase-Dipstick Negative /ul (Negative); Nitrite-Dipstick Negative (Negative); Occult Blood-Urine Negative /ul (Negative); Protein-Dipstick Negative (Negative); Urine Bilirubin Dipstick Negative (Negative); Urine Clarity Sl. Cloudy (Clear); Urine Urobilinogen Normal (Normal); Urine pH 6.5 (5.0 - 8.0)
[2023-03-24 09:39] LABS: Anion Gap 5 (5-15); BUN 11 mg/dL (7-18); BUN/Creat Ratio 14.6 RATIO (10-20); Calcium,Total 8.9 mg/dL (8.5-10.1); Chloride 108 mmol/L (98-107); Creatinine, Serum 0.75 mg/dL (0.55-1.02); EST Glomerular Filtration Rate 83 mL/min (>60); Est Glom Filt Rate - Afr Amer 100 mL/min (>60); Estimated Creatinine Clearance 66.83 ml/min; Glucose 122 mg/dL (74-106); Potassium 4.9 mmol/L (3.5-5.1); Sodium Level 137 mmol/L (136-145)
[2023-03-24 09:44] LABS: Bacteria 1+ /hpf (None Seen); Squamous Epithelial Cells - UA 0-5 SEEN /hpf (5-10)
[2023-03-24 10:45] VITALS: BP 126/75; PULSE 68
== END 2023-03-24 10:58 | disposition home or self-care (01) ==
PROVIDERS: Emergency Provider Emergency Medicine; PCP Family Medicine; Visit Provider Emergency Medicine
DX: R10.9 Unspecified abdominal pain (principal); Z90.49 Acquired absence of other specified parts of digestive tract
CPT/HCPCS: 74177; 80048; 81001; 85025; 99282; J7030; Q9967; A4216; J2405

== ENCOUNTER 2023-04-20 08:30 | Outpatient (RCR) | payer BC, SELFPAY ==
--- NOTE | 2023-03-21 08:49 | HP.PTEVAL_ITS ---
Patient's Visit Information ERNA CHATMAN is a 62 year old F referred to Physical Therapy by MICHAEL DE JESUS with a diagnosis of Spinal stenosis. Date of Evaluation: 03/21/23 Physical Therapist: Tab De La Torre DPT, OCS, CSCS - Visit Plan Frequency: 2x /Week Duration: 4-6 Weeks Plan: 2x/week for 3-4 weeks for... 1. rollout and stretch psoas. 2. 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 Ensure not sitting too long without NS focus - Subjective H/O LB trouble. Gets better with attention but then gets worse again. using gabapentin to settle it down. Pain is worse in the evening. it has been there for months this time around. Maybe due to a long train ride, often times car ride brings it on. Pain is LB and down both posterior to the knees. It is daily, it is intermittent and better in the morning. Mostly constant though. No numbness or tingly. Also has muscle relaxer. Spinal specialist sent her here. Employed [employer]. Sleeping Ok with help from ropinerol for RLS. also on antacid and meloxicam. basic ADLs are getting done. Hobbies: cooking and travel, reading. Has to avoid cooking somewhat as she is on her feet alot for that. Ex, goes to gym seveal times per week and walks several miles each day, better after walking. Uses TM at gym, ab machines and resistance training(OH push and row) - Pain LBP Pain Intensity (Out of 10): 2 Pain Intensity Range: 2, 7 - Objective Walks normal without gait deviation today. Transfers bed adn chair I without e vidence of pain. Steps reciprocal without rail up and down. LB AROM ext min limited and painful, flexion min limited, SB min limited. reflexes 2/3 patella and achilles B. core strength abs 4/5 and and LB 3+. sensation WNL to gross light touch B LE. Strength hips 4- and knees 4 and ankles 4. psoas mild tight B LE - Balance/Special Test Scores Oswestry Low Back Score: 19 - Goals Goal 1:: LBP intermittent and 2/10 at worst Goal Time Frame: 2-4 Weeks Goal 2:: I core ex at [employer]/home to limit future problems. Goal Time Frame: 2-4 Weeks Goal 3:: oswestry score 4 or better Goal Time Frame: 4-6 Weeks Goal 4:: sit in evening without increased pain Goal Time Frame: 4-6 Weeks - Rehabilitation Potential Physical Therapy Diagnosis: LBo from spinal stenosis Rehabilitation Potential: Fair - Anticipated Interventions Patient/Client Instruction: Educate patient on: Condition, Plan of Care For the Purpose of:: To decrease pain, To improve nutrient delivery to tissue, To improve muscle performance and motor function, To increase tolerance to activity/condition/position Therapeutic Exercise to Include: Strength training, Flexibilty training, Dynamic Lumbar Stabilization For the Purpose of:: To decrease pain, To increase ROM, To improve nutrient delivery to tissue, To improve muscle performance and motor function Manual Therapy Techniques to Include: Soft tissue mobilization For the Purpose of:: To decrease pain Thank you for the opportunity to evaluate your patient. For Medicare and Medicare HMO plans, please review the plan of care and approve it. It will need to be FAXED BACK to us at [phone] for Medicare purposes. For Medicare only, by signing this I certify the plan of care. Please let me know if there are questions or concerns regarding this plan of care. Physician Signature: Date:
--- NOTE | 2023-04-20 09:11 | HP.PTDCSUM ---
Discharge Summary D/C summary: It has been my pleasure to treat ERNA CHATMAN referred by MICHAEL DE JESUS, with the diagnosis of Spinal stenosis for a total of 6 visit(s). Discharge Date: 04/20/23 Please see the following information for a summary of their discharge status. Subjective Subjective: Better. Much less pain and more movement. Gardened carefully yesterday adn spread mulch without a problem 12 bags. Pain up to 1-2/10 unless she sat too much in car. HEP daily, ready to be on own. To doctor next week. Pain LBP: Pain Intensity (Out of 10): 0 Overall Improvement % Improvement: 80 Objective Objective/Function: Full aROM L/S without pain walks normal No concerns and seems to be managing well. Goals Goal 1:: LBP intermittent and 2/10 at worst Goal Progress: Goal Met Goal 2:: I core ex at [employer]/home to limit future problems. Goal Progress: Goal Met Goal 3:: oswestry score 4 or better Goal Progress: Progressing Goal 4:: sit in evening without increased pain Goal Progress: Goal Met Plan Plan: d/c D/C Information d/c sentence: If there are questions or concerns regarding this patient's physical therapy, please feel free to call me at [phone]. Thank you for the referral of this patient. Sincerely, Tab De La Torre, DPT, OCS, CSCS Balance/Gait/Functional tests Balance/Special Test Scores Oswestry Low Back Score: 6
== END 2023-04-20 19:00 | disposition home or self-care (01) ==
LOC: PT 08:30
PROVIDERS: PCP Family Medicine
DX: M47.817 Spondylosis without myelopathy or radiculopathy, lumbosacral region (principal); M47.816 Spondylosis without myelopathy or radiculopathy, lumbar region; M46.1 Sacroiliitis, not elsewhere classified
CPT/HCPCS: 97110; 97140; 97161; 97164

== ENCOUNTER 2023-09-24 18:03 | Emergency (ER) | payer BC, SELFPAY ==
[2023-09-24 18:04] VITALS: BP 141/97; PULSE 79; RESP 14; TEMP 36.1; O2SAT 100; BMI 25.9
--- NOTE | 2023-09-24 18:15 | EX.ED.GENINJ ---
HPI History of Present Illness Chief Complaint: Head Injury Detail of Chief Complaint: Forehead laceration and neck pain Informant: patient and spouse/S.O. Onset/Context/Timing Onset: Hours Mechanism/Context: Blunt Injury and Fall Quality of Pain: Throbbing Location: Forehead and neck Current Severity: Mild Maximum Severity: Severe Worsened by: Movement of her neck Associated Symptoms Associated Symptoms: Negative for Parasthesias, Weakness, Loss of function, Inability to ambulate, Loss of consciousness or Amnesia Narrative Narrative: 63-year-old woman who had a mechanical fall. She tripped. She fell falling forward. She hit the door frame. She denied loss of conscious. She not amnestic. She was not dazed. She is not not on an antithrombotic or anticoagulant. She denies head pain or headache. She does complain of neck pain. She denies paresthesia, anesthesia or motor close upper or lower extremity. She denies chest pain. Denies abdominal pain. Denies lower back pain. She denies history of bruising easily or having problems with bleeding. She denies double vision, blurred vision loss of vision. Denies trouble breathing out of her nose. Denies dental trauma. Tetanus Immunization: 5-10 years Prior similar symptoms: No Recent Illness/Hospitalization: No PFSH PFS Medical History Arthritis Back pain Glaucoma Neuropathy RLS (restless legs syndrome) Home Medications dicyclomine 10 mg capsule 20 mg (2 x 10 mg) PO Q6H PRN abdominal pain #20 CAPSULES 03/24/23 [Rx Last Taken Unknown] hydrocodone-acetaminophen 5-325mg 5mg-325mg 1 tab PO Q6H PRN PRN Pain 2 days #8 TABLETS 03/24/23 [Rx Last Taken Unknown] ondansetron 4 mg disintegrating tablet 8 mg (2 x 4 mg) PO Q8H PRN PRN Nausea #20 tabs 03/24/23 [Rx Last Taken Unknown] Allergy/AdvReac Type Severity Reaction Status Date / Time azithromycin [From Zithromax] Allergy Hives Verified 09/24/23 18:05 Surgical History History of appendectomy History of Social History Smoking Status: Never smoker ROS ROS ED Constitutional Constitutional ED: Denies chills, fever(s), subjective or sweats Eyes Eyes: Denies blurry vision or change in vision ENT ENT ED: Denies ear pain, rhinorrhea or sore throat Cardiovascular Cardiovascular: Denies chest pain or palpitations Respiratory/Chest Respiratory/Chest: Denies cough or dyspnea Gastrointestinal Gastrointestinal: Reports nausea; Denies vomiting Musculoskeletal Musculoskeletal: Reports neck pain; Denies back pain or myalgias Integumentary Reports other Details: Forehead laceration. ; Denies rash Neurologic Neurologic: Denies headache(s), paresthesias or weakness Hematologic/Lymphatic Hematologic/Lymphatic: Denies easy bleeding or easy bruising EXAM Physical Exam Const Vital Signs: 09/24/23 18:04 Temperature 97.0 F L Temperature Source Temporal Pulse Rate 79 Respiratory Rate 14 Blood Pressure 141/97 H Blood Pressure Mean 111 Pulse Ox 100 Oxygen Delivery Method Room Air Vital signs noted. Blood pressure slightly elevated. Positive well nourished HEENT HEENT Narrative: Tenderness over the forehead. There is no clinical signs of basilar skull fracture. There is no septal deviation hematoma. No dental trauma. No tenderness over the right or left TMJ joint with no evidence of malocclusion. trauma and tenderness Eyes PERRL and EOMs intact bilaterally General Eye ED: Yes other Other Details: There is no subconjunctival hemorrhage. There is no step-off with palpation infraorbital rim or hyperesthesia of the infraorbital nerve. Neck No full ROM Neck Narrative: C4-C6. General: tenderness Chest Wall inspection of chest normal and palpation of chest normal Resp normal respiratory effort and clear to auscultation bilaterally Cardio regular rhythm, S1 normal heart sound, S2 normal heart sound and no murmurs Rate: regular rate Extremity normal to inspection and full ROM Extremity Narrative: No neurovasc compromise upper or lower extremity. Neuro oriented x3, CN's II-XII intact bilaterally, moves all extremities, no focal motor deficits and no sensory deficits noted Lashawn Coma Scale: document GCS findings Spontaneous Obeys Commands Oriented 15 Sensorium / Orientation: alert Plantar Reflex: Downgoing: bilateral Psych mental status grossly normal and thought process normal Skin no rashes or lesions noted, skin turgor normal and no jaundice Skin Narrative: Forehead laceration 3 cm right side PROC Procedures Other Procedures Procedure(s): Patient had a supraorbital trochlear nerve block placed using 1% lidocaine. Total of 4 cc was infiltrated. Patient tolerated procedure. Laceration was closed using 6-0 Ethilon. A total of 11 simple interrupted sutures was placed. Patient tolerated procedure well. Wound was irrigated with 100 cc of normal saline. MDM MDM MDM Narrative Medical decision making narrative: With pain outpatient C4-C6 limited range of motion and mechanism injury patient placed in c-collar and CT of the neck was obtained. The laceration will need repair. Nerve block was placed as described under the procedure note. Once patient returns from scan will suture forehead. Radiography Diagnostic Testing: Clinical Impression(s) from Imaging Studies Cervical Spine CT 09/24/23 19:00 IMPRESSION: There is no definite acute fracture/dislocation. Degenerative changes. Electronically Signed: Juan Harrell MD at 20:04 EST , CT of the cervical spine per my read reveals no evidence of fracture, subluxation or dislocation. There is arthritic changes noted. There is no asymmetry of the disc bases. There is no prevertebral soft tissue swelling noted. Awaiting formal read by radiologist, 1899 Treatment and Re-Evaluation Narrative: CT report was read. There is no acute injury noted. She be discharged home with appropriate home-going instructions. Discharge Plan Triage Chief Complaint: Head Injury ED Provider: Marshall Johnson Dx/Rx/DC Orders Clinical Impression: Acute cervical myofascial strain, Elevated blood-pressure reading without diagnosis of hypertension, Forehead laceration, Nausea, Contusion of head Instructions: ED Hypertension, To Be Confirmed, ED Laceration, All Closures, ED Neck Sprain or Strain, ED Laceration Minimize Scars Prescriptions: No Action dicyclomine 10 mg capsule 20 mg PO Q6H PRN (Reason: abdominal pain) Qty: 20 0RF hydrocodone-acetaminophen [hydrocodone-acetaminophen] 5-325 mg tablet 1 tab PO Q6H PRN PRN (Reason: Pain) 2 Days Qty: 8 0RF ondansetron [ondansetron] 4 mg tablet,disintegrating 8 mg PO Q8H PRN PRN (Reason: Nausea) Qty: 20 0RF Primary Care Provider: Xin Carpio Referrals: Xin Carpio, [Primary Care Provider] - 5 Days for suture removal Activity Restrictions/Additional Instructions: 1. Apply bacitracin ointment to the laceration 3 times a day 2. You may feel worse over the next 24 to 48 hours and hurt in more places than you presently do. 3. Apply ice to your neck 6-10 times a day for the next 3 to 5 days. 4. You may take either 4 ibuprofen tablets every 8 hours or 2 Aleve tablets every 12 hours for the next 3 to 5 days for your pain Disposition Disposition: Home, Self Care
--- NOTE | 2023-09-24 18:21 | ED.RN ---
Per Dr. Johnson, placed pt. in c-collar.
[2023-09-24] MEDS: Ondansetron ODT 4 MG Tablet PO (18:38)
[2023-09-24] MEDS: Lidocaine 1% (20 ml mdv) 20 ML Vial INFILT (18:38)
--- NOTE | 2023-09-24 19:00 | CT_ITS ---
STUDY: CT CERVICAL SPINE WITHOUT CONTRAST REASON FOR EXAM: Female, 63 years old. Pain C5-C6 due to trauma RADIATION DOSAGE (If Supplied By Facility): CTDIvol = ( 14.56 ) mGy, DLP = ( 299.06 ) mGycm TECHNIQUE: High resolution transaxial imaging was performed without contrast material. Sagittal and coronal images were reconstructed. Individualized dose optimization techniques were used for this CT. COMPARISON: None FINDINGS: No definite acute fracture/dislocation. The cervical junction is intact. C1-C2 articulation is intact. There is straightening. There is normal alignment. Facet joints are intact at all levels bilaterally. No jumped facets. There is multilevel spondyloarthropathy. Multilevel degenerative disc disease seen. Multilevel loss of disc height. Multilevel posterior marginal osteophytes and disc bulges. Multilevel neural foraminal narrowing. Multilevel narrowing of the spinal canal. Visualized paraspinal soft tissues and structures are unremarkable. CT/Spine Cervical without Contras IMPRESSION: There is no definite acute fracture/dislocation. Degenerative changes. Electronically Signed: Juan Harrell MD at 20:04 EST ,
[2023-09-24 20:03] VITALS: BP 138/96; PULSE 78; RESP 16; O2SAT 98
[2023-09-24 21:05] VITALS: BP 138/56; PULSE 78; RESP 16; O2SAT 98
== END 2023-09-24 21:11 | disposition home or self-care (01) ==
PROVIDERS: Emergency Provider Emergency Medicine; PCP Family Medicine; Visit Provider Emergency Medicine
DX: S01.81XA Laceration without foreign body of other part of head, initial encounter (principal); R03.0 Elevated blood-pressure reading, without diagnosis of hypertension; S16.1XXA Strain of muscle, fascia and tendon at neck level, initial encounter; R11.0 Nausea; W01.198A Fall on same level from slipping, tripping and stumbling with subsequent striking against other object, initial encounter; Z90.49 Acquired absence of other specified parts of digestive tract
CPT/HCPCS: 12013; 64400; 64999; 72125; 99283; J7030; J7050; A4216